=== PATIENT | male | born 1955 | race African-American/Black ===

== ENCOUNTER 2019-02-15 09:29 | Emergency (ER) | payer BC, OTHER ==
[~2019-02-15] VITALS: Ht 182.9 cm; Wt 90.0 kg
[2019-02-15] MEDS ORDERED: ONDANSETRON ODT 4 MG ONE (10:17)
[2019-02-15] MEDS ORDERED: HYDROmorphone 2 MG/ML, 1ML ONE (10:17)
[2019-02-15] MEDS ORDERED: HYDROmorphone 1 MG/ML, 1ML INJ IM ONE (10:30)
[2019-02-15] MEDS ORDERED: ONDANSETRON ODT 4 MG PO ONE (10:30)
[2019-02-15 10:55] LABS: INTERNATIONAL NORMALIZED RATIO 1.8 (0.93-1.1); PROTHROMBIN TIME 18.5 Seconds (9.6-11.5)
[2019-02-15 12:28] VITALS: BP 121/76
== END 2019-02-15 12:30 | disposition home or self-care (01) ==
LOC: ED 10:36
DX: M13.171 Monoarthritis, not elsewhere classified, right ankle and foot (principal); M11.271 Other chondrocalcinosis, right ankle and foot
CPT/HCPCS: 36415; 73630; 85610; 96372; 99284; J1170; J7512; Q0162